=== PATIENT | female | born 1990 | race Caucasian/White ===

== ENCOUNTER 2022-06-09 22:53 | Emergency (ER) | payer MEDICAID, SELFPAY ==
[2022-06-09 22:54] VITALS: BP 140/71; PULSE 97; RESP 16; TEMP 36.2; O2SAT 97
[2022-06-09 23:16] VITALS: BMI 43.8
--- NOTE | 2022-06-09 23:29 | EDS_ITS ---
HPI History of Present Illness Chief Complaint: Fall Narrative Narrative: 31-year-old female here with mechanical fall from standing. She notes injury to the abdomen and right hand. Notes mechanical fall. Denies syncope. Denies any abdominal cramping, vaginal bleeding, passage of tissue or decreased movement. Denies any nausea or vomiting. Denies any recent fevers or trouble urinating. PFSH PFSH Home Medications prenat.vits,lenore,mks-bvue-dngva 1 tab PO DAILY 06/09/22 [History Last Taken Unknown] Allergy/AdvReac Type Severity Reaction Status Date / Time latex Allergy Rash Verified 06/09/22 22:53 Surgical History (Updated 06/09/22 @ 23:17 by Michelle Key) H/O section Social History Smoking Status: Former smoker ROS ROS ED ROS Narrative Constitutional: Denies fever HEENT: Denies sore throat Neck: Denies neck pain Cardiovascular: Denies chest pain, syncope Respiratory: Denies shortness of breath GI: Endorses abdominal pain : Denies changes in urinary habits Musculoskeletal: Right hand pain Neurologic: Denies numbness weakness or loss of sensation Skin denies rash EXAM Physical Exam Narrative Exam Narrative: Primary Survey Airway: Intact Breathing: Bilateral breath sounds Circulation: Palpable bilateral femorals, Palpable bilateral radial, Palpable bilateral DP and Palpable bilateral PT Disability / Spine precautions GCS Score: Eye Openin Verbal Response: 5 Motor Response: 6 Secondary Survey Constitutional: Please see MDM Head: Atraumatic, Midface stable, NO jaw malocclusion, No Cephalohematoma, and No Lacerations noted Eye: Pupils equal round and reactive to light, Extraocular muscles intact and No periorbital ecchymosis or stepoff, no evidence of entrapment ENT: Oropharynx clear, no lacerations, no hemotympanum, no raccoon eyes or lock sign Cervical spine / Neck: No cervical spine bony tenderness, crepitance, or stepoff deformity Trachea midline Lungs: Clear to auscultation, No asymmetric rise and No crepitus, no flail chest Cardiac: Regular rate and rhythm and No murmurs Abdomen: Gravid uterus, soft, mild diffuse tenderness No rebound, no obvious bruising, no Bruce sign Pelvis: Pelvis stable to compression : No evidence of genital injury Back: No midline bony tenderness to thoracic/lumbar/sacral spines Neuro: At baseline, intact strength and sensation in bilateral upper and lower extremities. 2+ patellar reflexes bilaterally. Extremities: NO gross Deformities Psych: Normal affect Nursing triage notes reviewed, Vital signs reviewed Const Vital Signs: 06/09/22 22:54 06/09/22 23:16 Temperature 97.1 F L Temperature Source Temporal Pulse Rate 97 Respiratory Rate 16 Respiratory Effort Normal Blood Pressure 140/71 H Blood Pressure Mean 94 Pulse Ox 97 Oxygen Delivery Method Room Air Room Air MDM MDM MDM Narrative Medical decision making narrative: Chief Complaint: Fall, abdominal pain, hand pain External records reviewed: No recent ER visits, no recent advanced imaging of the involved extremity or abdomen I considered the following differential diagnosis: Traumatic injury to the hand, abdominal contusion, abruption. I obtained x-rays of the involved extremities. heart tones are 140 for least one of the babies. This is reassuring. I performed a POCUS ultrasound which showed no obvious abnormalities, good movement, no obvious abruption. This was also reassuring. Consulted BUILDER BEAM. Spoke to soaking pits supervisor. Elizabeth Melton soaking pits supervisor stated the patient should be observed for 3 to 4 hours from time of fall and if there is no severe cramping abdominal pain, vaginal bleeding the patient is appropriate for discharge home. she further recommended close BUILDER BEAM follow-up. Patient was observed for approximately 3 to 4 hours. She remained asymptomatic. Factors affecting care: Patient is 18 weeks Social determinants of health: None History obtained from others: The patient's Shared decision making: I will have a discussion with the patient and or visitors regarding risk/benefits of further testing or admission. They will be made aware of of the risk/benefits inherent in this decision they will be given the opportunity to voice understanding. Consults: BUILDER BEAM Discharge Plan Triage Chief Complaint: Fall ED Provider: David Pereira Dx/Rx/DC Orders Clinical Impression: Fall, Abdominal contusion, Instructions: Placental Abruption Prescriptions: No Action #2 Tablet 1 tab PO DAILY Primary Care Provider: Care Physician,No Primary Referrals: Care Physician,No Primary [Primary Care Provider] - Activity Restrictions/Additional Instructions: Thank you for trusting us with your care today! Please take Tylenol (2 pills, 650 mg) every 6 hours as needed for pain control. Please return if you develop worsening crampy abdominal pain, vaginal bleeding, notice decrease movement, leakage of fluid. Please call OBGYN tomorrow to schedule an appointment for close follow-up. Please return to the emergency department if your symptoms change or worsen. Please follow with your primary care physician for further outpatient evaluation and management. Disposition Disposition: Home, Self Care Discharge Date/Time: 06/10/22 01:34
[2022-06-10] MEDS: Acetaminophen 500 MG Tablet PO (00:17)
== END 2022-06-10 01:34 | disposition home or self-care (01) ==
PROVIDERS: Emergency Provider Emergency Medicine; Visit Provider Emergency Medicine
DX: O9A.212 Injury, poisoning and certain other consequences of external causes complicating pregnancy, second trimester (principal); S30.1XXA Contusion of abdominal wall, initial encounter; S69.91XA Unspecified injury of right wrist, hand and finger(s), initial encounter; Z87.891 Personal history of nicotine dependence; Z3A.18 18 weeks gestation of pregnancy; W19.XXXA Unspecified fall, initial encounter
CPT/HCPCS: 99283

== ENCOUNTER 2022-10-01 21:37 | Outpatient (CLI) | payer MEDICAID, SELFPAY ==
[2022-10-01 22:13] VITALS: BMI 53.8
[2022-10-01 22:18] VITALS: PULSE 87; TEMP 36.4; O2SAT 96; O2SAT 97
[2022-10-01 22:19] VITALS: BP 111/54; PULSE 88
[2022-10-01 22:23] VITALS: PULSE 93; O2SAT 97
[2022-10-01 22:51] LABS: ROM Internal Control Test YES-OK TO RESULT pt. (Internal QC)
[2022-10-01 22:52] LABS: ROM Patient Test Negative (Negative); Record Kit Lot#, ROM+ K1374
--- NOTE | 2022-10-14 08:48 | OB.TRI.HP_ITS ---
HPI - General General Date of Admission: 10/01/22 Date of Service: 10/01/22 Chief Complaint: SROM HPI Narrative KINGSLEY COX, is a 32 F at 35w2d who presents with possible leaking fluid. [place] wet. No gush of fluid and no constant leak of fluid. PFSH PFSH Medical History (Updated 10/14/22 @ 08:[address] Lindsey Degroot, DO) Anxiety Depression Gestational diabetes Gestational HTN HPV (human papilloma virus) infection Home Medications prenat.vits,lenore,nhx-bqnj-okhdm 1 tab PO DAILY 06/09/22 [History Last Taken 10/06/22 08:00 1 TAB] hydroxyzine HCl 50 mg tablet 50 mg PO .COMPLEX anxiety 10/08/22 [History Last Taken 10/07/22 22:00 50 mg] acetaminophen 500 mg tablet 1,000 mg (2 x 500 mg) PO Q6H #0 tabs 10/12/22 [Rx Last Taken Unknown] ibuprofen 600 mg tablet 600 mg PO Q6H #0 tabs 10/12/22 [Rx Last Taken Unknown] nifedipine 30 mg tablet,extended release 24 hr 30 mg PO DAILY #30 tabs 10/12/22 [Rx Last Taken Unknown] Allergy/AdvReac Type Severity Reaction Status Date / Time latex Allergy Rash Verified 10/08/22 13:17 Surgical History (Updated 10/12/22 @ 08:[address] Bhaskar Harry MD) H/O section History of gynecologic surgery Previous section Social History Smoking Status: Former smoker History Elective abortions Hx Para 1 Spontaneous abortions Hx # Term Pregnancies Ectopic pregnancies Hx # Pregnancies Multiple births # of living children NST FHR Rate Baby A Baseline: 130 Variability:: Moderate Accelerations:: 15 x 15 Decelerations:: None NST Reactive:: Yes FHR Category:: Category I FHR Rate Baby B Baseline: 130 Variability:: Moderate Accelerations:: 15 x 15 Decelerations:: None NST Reactive:: Yes FHR Category:: Category I Assessment & Plan (1) 35 weeks gestation of : PLAN: - ROM plus negative - Not continuing to leak any fluid - NST reactive x 2 - Follow up in office (2) Twin : (3) Vaginal discharge:
== END 2022-10-01 23:20 | disposition home or self-care (01) ==
LOC: WPOUT 21:44 → WP 21:45
PROVIDERS: Visit Provider Obstetrics & Gynecology
DX: O99.891 Other specified diseases and conditions complicating pregnancy (principal); O24.419 Gestational diabetes mellitus in pregnancy, unspecified control; F41.9 Anxiety disorder, unspecified; F32.A Depression, unspecified; O13.3 Gestational [pregnancy-induced] hypertension without significant proteinuria, third trimester; Z79.899 Other long term (current) drug therapy; O30.003 Twin pregnancy, unspecified number of placenta and unspecified number of amniotic sacs, third trimester; N89.8 Other specified noninflammatory disorders of vagina; Z3A.35 35 weeks gestation of pregnancy
CPT/HCPCS: 59025; 59050; 84112; 99221; G0378

== ENCOUNTER 2022-10-08 12:35 | Inpatient (IN) | payer MEDICAID, SELFPAY ==
[2022-10-08] VITALS (14 sets, daily range): BP systolic 97–145; BP diastolic 41–92; PULSE 74–98; RESP 12–18; TEMP 36.1–36.6; O2SAT 95–98; BMI 53.8
--- NOTE | 2022-10-08 13:01 | PCM.HP.BLA ---
History and Physical Date of Admission: 10/08/22 Pre-Op History and Physical ? HPI: The patient is a 32 year old female presenting for pre-operative visit. She is scheduled for , with bilateral salpingectomy for di/di twins, gestational htn, GDMA2, Obesity in on 10/08/22. Procedure discussed along with risks, benefits and complications. Other alternatives discussed for management. Consent form signed? Yes. ? ? PAST MEDICAL HISTORY PAST MEDICAL HISTORY Diagnosis Date ? Abnormal Pap smear of cervix 2008 ? ASCUS +HPV ? Diet controlled gestational diabetes mellitus (GDM) in second trimester 08/25/2022 ? Encounter for IUD removal 08/03/2011 ? Endometriosis ? ? Insertion of IUD 01/23/2009 ? Mirena ? Mental disorder ? ? PMH - PAST MEDICAL HISTORY OF 09/06/2005 ? normal color vision ? ? PAST SURGICAL HISTORY PAST SURGICAL HISTORY Procedure Laterality Date ? DELIVERY ONLY ? ? ? , low transverse ? TISSUE LOCALIZATION-EXCISION ? 03/12/14 ? removal of endometriosis from RLQ abd. wall ? ? ? CURRENT MEDICATIONS Current Outpatient Medications Medication Sig Dispense Refill ? insulin NPH injection Inject 10 Units subcutaneously daily at bedtime. 3 mL 1 ? insulin needles, DISPOSABLE, (PEN NEEDLE) 31 gauge x 5/16 1 Each once daily as needed. 30 Each 1 ? insulin NPH injection Inject 10 Units subcutaneously daily with breakfast. 3 mL 1 ? blood sugar diagnostic test strip 1 Strip four times daily. Use as instructed 120 Strip 9 ? Lancets lancets 1 Each four times daily. Use as instructed 120 Each 9 ? hydrOXYzine HCl (ATARAX) 50 mg tablet Take 0.5-1 tablets by mouth three times daily as needed for anxiety. 30 tablet 1 ? vitamin B comp and vit C no.6 (VITAMIN B COMP WITH VIT C NO.6 ORAL) Take by mouth. ? ? ? prental multivitamin 27 mg iron- 800 mcg tablet Take 1 tablet by mouth once daily. ? ? ? No current facility-administered medications for this visit. ? ? ALLERGIES: Latex ? PERSONAL HISTORY: SOCIAL HISTORY Social History ? Tobacco Use ? Smoking status: Former ? ? Packs/day: 0.50 ? ? Years: 15.00 ? ? Additional pack years: 0.00 ? ? Total pack years: 7.50 ? ? Types: Cigarettes ? ? Quit date: 02/12/2022 ? ? Years since quittin.6 ? Smokeless tobacco: Never Vaping Use ? Vaping Use: current everyday user ? Substances: Nicotine Substance Use Topics ? Alcohol use: Not Currently ? ? Comment: wine 1-2 per week ? Drug use: Not Currently ? ? Types: Marijuana ? FAMILY HISTORY: FAMILY HISTORY FAMILY HISTORY Problem Relation Age of Onset ? other (cervial cancer [Other]) Mother 33 ? Radiation and chemo ? Diabetes Father ? ? Stroke Father ? ? Breast Cancer Maternal Grandmother ? ? No Known Problems Maternal Grandfather ? ? Diabetes Paternal Grandmother ? ? Thyroid Paternal Grandmother ? ? No Known Problems Paternal Grandfather ? ? Diabetes Paternal Uncle ? ? No Known Problems Son ? ? ? REVIEW OF SYMPTOMS: Increasing swelling of LE PHYSICAL EXAMINATION: ? VITALS: Blood pressure 142/84, weight (!) 306 lb (138.8 kg), last menstrual period 01/27/2022. ? GENERAL: The patient is well nourished, well hydrated in no acute distress. , The patient is oriented to time, place, and person. NECK: full range of motion ABD: gravid, non tender LE: Pitting edema to thighs. ? IMPRESSION: @ 36.2 weeks, Di/di twins, Obesity in , GEST HTN, GDMA2. ? PLAN: Repeat cs and bilateral salpingectomy ? Patient was originally scheduled for 37-week however after visit in the office today and new diagnosis of gestational hypertension discussion with the patient for early delivery. Delivery at 36.2 weeks gestation. we discussed risk benefits and alternatives of delivery. She understands that neonates born at 36 weeks gestation may have difficulty with prematurity as far as lung maturity. However we discussed this versus increasing risk for preeclampsia. Patient understands the risks and decision for repeat section with bilateral salpingectomy to be performed today. ? Pt has been counseled on risks/benefits and alternatives of surgery including but not limited to anesthesia, bleeding, infection, injury to pelvic structures including bowel, bladder, ureters and vessels. Pt wishes to proceed with surgery at this time. ? NPO since 8am. ? I have reviewed and updated past medical and surgical history, medications and allergies Willa Roberson MD
[2022-10-08 13:25] LABS: Bedside Glucose 62 mg/dL (74-106)
[2022-10-08] MEDS: Lactated Ringers 1,000 ML 999 ML IV (13:35)
[2022-10-08 14:02] LABS: Absolute Lymphocyte Count 1.69 X10^3/uL (0.83-4.51); Basophil# 0.02 X10^3/uL; Basophil% 0.2 % (0-1); Eosinophil# 0.08 X10^3/uL; Eosinophils% 0.8 % (0-5); Hemoglobin 9.2 g/dL (12.0-15.0); Lymphocyte # 1.69 X10^3/ul (0.83-4.51); Lymphocyte % 16.1 % (19-41); Mean Corp Hgb Conc 31.7 g/dL (32-36); Mean Corpuscular Hgb 27.2 pg (27.0-32.0); Mean Corpuscular Volume 85.8 fL (81-99); Mean Platelet Vol. 11.9 fl (6.2-12.0); Monocyte# 0.66 X10^3/uL; Monocyte% 6.3 % (0-10); NRBC Flagged by Analyzer 0 % (0-5); Neutrophil # 7.97 X10^3/uL (2.7-7.7); Neutrophil % 75.6 % (47-70); Platelet Count 218 K/mm3 (150-450); RBC Distribution Width CV 15.8 % (11.6-14.6); RBC Distribution Width SD 49.1 fl (35.1-43.9); Red Blood Count 3.38 M/mm3 (4.2-5.4); White Blood Count 10.5 K/mm3 (4.4-11.0)
[2022-10-08] MEDS: Acetaminophen 500 MG Tablet 1000 MG PO ×2 (14:08→20:19)
[2022-10-08] MEDS: Lactated Ringers 1,000 ML 150 ML IV (14:30)
[2022-10-08 14:37] LABS: Syphilis Antibodies Non-reactive
[2022-10-08] MEDS: Sodium Citrate/Citric Acid 30 ML UDC PO (15:37)
--- NOTE | 2022-10-08 16:30 | PLAC_PTH ---
PATIENT: KINGSLEY COX LOC: [facility] U#:[id number] AGE/SX: 32/F ROOM: [facility] RE10/08/[address]: Dr. Willa Toure, MDDOB: 1990 BED: 1 DIS: 10/12/2022 SPEC #: [id number] RECD: 10/08/22 18:56 STATUS: GARY ANNIE #: [id number] CYDNEY: 10/08/22 16:[address]: Willa Toure DEPT: SURGICAL PATHOLOGY RECD BY: Ann Marie Rai ENTERED: 10/11/22 07:21 SP TYPE: PLACENTA OTHR DR: No Primary Care Phys Tissues: A - Fallopian tube B - Fallopian tube C - Placenta, NOS Procedures: Surgery Specimen Level II Surgery Specimen Level V HEADER OPERATION: Tubal ligation, repeat section PRE-OP DIAGNOSIS: Twins TISSUE SUBMITTED: A - Right fallopian tube, B - Left fallopian tube, C - Placenta MICROSCOPIC DIAGNOSIS A. Right fallopian tube, salpingectomy: Complete cross-section with no pathologic change. B. Left fallopian tube, salpingectomy: Benign paratubal cyst. Complete cross-section of fallopian tube. C. Dichorionic diamniotic twin placenta (919 gm): Placenta A: Umbilical cord - trivascular with no inflammation. Placental membranes - No pathologic change. Placental disc - mild Cassandra-Cecil change and intravillous congestion. Placenta B: Umbilical cord - trivascular with no evidence of inflammation. Placental membranes - No pathologic change. Placental disc - Cassandra-Cecil change, intravillous congestion and increased intraparenchymal fibrin plaques. AM:haim 10/12/2022 MICROSCOPIC DESCRIPTION Slides are reviewed. GROSS DESCRIPTION A - Received in fixative is one container labeled with the patient's name and designated right fallopian tube. The specimen consists of a fallopian tube with an average length of 7.5 cm and has an average diameter of 0.7 cm. The fallopian tube has a normal fimbriated end. No mass lesions are identified. Rn Women Services sections are submitted one cassette. B - Received in fixative is one container labeled with the patient's name and designated left fallopian tube. The specimen consists of a fallopian tube with an average length of 7.0 cm and has an average diameter of 0.8 cm. The fallopian tube has a normal fimbriated end. A smooth, glistening cyst containing clear fluid is present adjacent to the fimbrial end. The cyst measures 1.0 cm in greatest dimension. Rn Women Services sections are submitted one cassette. C - SPECIMEN: TWIN PLACENTA / CLINICAL INFORMATION: A. Weight: A - 2.605 kg; B - 2.435 kg B. Gestational Age: 36.2 weeks C. Sex: A - Female, B - Female The specimen consists of a twin placenta containing two umbilical cords, dividing membrane, peripheral membranes and one placental disc. One umbilical cord contains a clip and is designated placenta A. PLACENTAL WEIGHT (POST FIXATION): 919 gm PLACENTAL DIMENSIONS: 21.0 x 1.9 x 4.0 cm PLACENTAL SHAPE: Usual ovoid PLACENTAL WEIGHT FOR GESTATIONAL AGE: Not applicable PLACENTA A: (with clip) MEMBRANES - Present A. Insertion: Marginal B. Site of rupture from edge: At edge of placental disc C. Color of membrane: Fallon-barrow D. Abnormalities: None UMBILICAL CORD - Present A. Color: Fallon-barrow B. Insertion: Near central insertion onto the placental disc C. Length: 26.0 cm D. Diameter: 1.2 cm E. Number of vessels: Three F. Abnormalities: None PLACENTA B: MEMBRANES - Present A. Insertion: Marginal B. Site of rupture from edge: At edge of placental disc C. Color of membrane: Fallon-barrow D. Abnormalities: None UMBILICAL CORD - Present A. Color: Fallon-barrow B. Insertion: Marginal C. Length: 32.0 cm D. Diameter: 1.5 cm E. Number of vessels: Three F. Abnormalities: None PLACENTAL DISC - Present A. Color of surface: Fallon-barrow B. surface abnormalities: None C. Maternal cotyledons: Intact with minimal tears D. Attached retro placental clot: No clot E. Cut surface: Dark red and spongy F. Lesions: None G. Separate clot: Absent SECTIONS SUBMITTED: 1. Dividing membrane 2. Umbilical cord A 3. Peripheral membranes A 4. Placenta disc A 5. Placental disc A 6. Placental disc A 7. Umbilical cord B 8. Peripheral membranes B 9. Placental disc B 10. Placental disc B 11. Placental disc B AM:haim 10/11/2022 TC:5 CPT: 38015 x2, 50103 x2
--- NOTE | 2022-10-08 16:51 | EX.PCM.OBRPT ---
Details Operative Information Date of Procedure: 10/08/22 Pre-Operative Diagnosis: Gestational hypertension, 36.2 weeks gestation, dichorionic diamniotic twin gestation, gestational diabetes insulin dependent, Obesity in , Previous CS, breech, desires sterilization Post-Operative Diagnosis: Same, Live female infants Indications for : Repeat Elective , Desires elective sterilization and Breech Classification: Scheduled Procedure Type: low transverse (and bilateral salpingectomy ) stock handler floorperson #1: Lindsey Degroot Type of Anesthesia: Spinal Antibiotic Given: Ancef 3 grams IV x1 Drain: [place]velace to straight drain Estimated Blood Loss: 600 Fluids Replaced: 1000 Procedure Start Time: 16:06 Procedure Stop Time: 16:40 Time of Delivery: 16:11 (161) Findings Description of Procedure: After informed consent was obtained the patient was taken to the operating room she was given spinal anesthesia. He was placed in the supine position. She was then prepped and draped in normal sterile fashion. Once spinal anesthesia was found to be adequate skin incision was made with a scalpel in a Pfannenstiel fashion. It was carried down to the underlying layer of the fascia. Fascia was then incised midline with scapel and extended laterally using curved mian. 2 straight [place]'s were placed in the superior aspect of the fascial edge and the rectus muscles were dissected off sharply. At this time the rectus muscles were bluntly. Using blunt force the peritoneum was then entered. adhesions to anterior uterus noted- At this time the vesicouterine peritoneum was identified. Metzenbaum scissors were used to create a bladder flap and then taken down digitally. Uterine incision was made in a low transverse fashion with the scalpel and then entered bluntly. Gentle opposing traction was placed to extend the uterine incision. The membranes were ruptured amniotic fluid clear. Twin A buttocks was brought to the uterine incision was delivered atraumatically followed by the rest the 's body and head without complication. Cord was clamped and cut. The infant was handed to the waiting nursery team. Twin B the buttocks was stabilized and membranes were ruptured clear. Again the buttocks was brought to the uterine incision delivered atraumatically followed by the rest the infant's body and head. Mouth and nose were suctioned cord was clamped and cut. Infant was then handed to the waiting nursery team. The placentas were then removed with gentle traction. The uterus was removed from the intra-abdominal cavity- adhesions noted around both lateral aspects of uterus. uterus was cleared of all clots and debris using a moist lap. Ring clamps were placed on the uterine angles. #1 Vicryl suture was used in a running locked fashion- excellent hemostatis appreciated. At this time then the uterus was placed back into abdominal cavity uterine incision was evaluated and noted to be of good hemostasis. Tubes and ovaries were evaluated they were normal. The tubes were grasped in an avascular area with the [place] LigaSure was used to coagulate and ligate along the mesosalpinx. The tube on right was removed in entirety. This was then repeated on the left. Great hemostasis was appreciated at this time the uterine incision was again evaluated good hemostasis was appreciated. Nurses then placed back in the intra-abdominal cavity. Leeann placed over the uterine incision. The peritoneum was grasped with Kellys. Peritoneum was reapproximated using #2 Vicryl suture in a running fashion. Leeann placed over the rectus muscle. The fascia was then reapproximated using #1 PDS in a running fashion. Subcutaneous layer was evaluated and Bovie was used for any small oozing that was noted, irrigation using normal saline was performed. Leeann was placed. Per #2-0 plain gut suture was then used to reapproximate the subcutaneous layer 4-0 Vicryl on a [place] needle was used to reapproximate the skin in a subcutaneous fashion. Dry sterile dressing was applied. Instrument lap needle count were correct ?2. Anticipated normal postoperative course for this patient. Dr. Degroot assisted with retraction and delivery of twins. no qualified residents available. Presentation: Positive for Complete Breech Amniotic Membrane Rupture Type: Artificial Amniotic Fluid Description: Clear Placental Delivery Description: Expressed Placenta Disposition: [facility] Cord Vessel Description: 3 Vessels Cord Entanglement: None Infant A Gender: Female (1 minute): 9 (5 minute): 9 Delayed Cord Clamping: No Complications Risks of Surgery Discussed w/Patient: Bleeding, Anesthesia Risks, Infection, Permanency, Injury to surrounding structure(s) including bowel and bladder and Availability of other non-permanent control options Complications: none Baby B Information Amniotic Membrane Rupture Type: Artificial Presentation: Complete Breech Operative Information Mode of Delivery: Cord Vessel Description: 3 Vessels Cord Entanglement: None Infant B gender: Female (1 minute): 8 (5 minute): 9 Delayed Cord Clamping: No
[2022-10-08] MEDS: Oxytocin 15 Units/NS 250ml 15 UNITS/250 ML IV.SOLN 83 UNITS IV (17:07)
[2022-10-08] MEDS: Ketorolac 30 MG/ML Syringe IV ×2 (17:22→23:18)
--- NOTE | 2022-10-08 18:03 | NURSING ---
Received report from Cynthia Nguyen RN at this time. I will assume care of patient at this time.
[2022-10-08 18:15] LABS: Bedside Glucose 70 mg/dL (74-106)
[2022-10-08 18:57] LABS: Pathology Specimen OB SEE PATHOLOGY REPORT
[2022-10-08] MEDS: Lactated Ringers 1,000 ML 100 ML IV (20:20)
[2022-10-08] MEDS: 0.9% Saline Lock 10 ML Syringe IV (23:21)
[2022-10-08] MEDS: oxyCODONE 5 MG Tablet PO (23:50)
[2022-10-09 01:00] VITALS: BP 149/75; PULSE 83; RESP 15; TEMP 36.4; O2SAT 97
[2022-10-09 04:00] VITALS: BP 149/90; PULSE 88; RESP 15; TEMP 36.7; O2SAT 96
[2022-10-09] MEDS: Acetaminophen 500 MG Tablet 1000 MG PO ×4 (04:25→21:48)
[2022-10-09] MEDS: SimETHICONE 80 MG Chewable Tablet PO (04:25)
[2022-10-09] MEDS: Enoxaparin 40 MG/0.4 ML Syringe SC ×2 (04:26→17:11)
[2022-10-09 05:06] LABS: Bedside Glucose 97 mg/dL (74-106)
[2022-10-09] MEDS: Ketorolac 30 MG/ML Syringe IV ×2 (05:32→11:30)
[2022-10-09] MEDS: 0.9% Saline Lock 10 ML Syringe IV ×2 (05:32→11:30)
[2022-10-09 07:31] LABS: Hematocrit 29.4 % (37-47); Hemoglobin 9.1 g/dL (12.0-15.0); Mean Corpuscular Hgb 26.5 pg (27.0-32.0); Mean Corpuscular Volume 85.7 fL (81-99); Platelet Count 179 K/mm3 (150-450); RBC Distribution Width CV 15.8 % (11.6-14.6); RBC Distribution Width SD 49.3 fl (35.1-43.9); Red Blood Count 3.43 M/mm3 (4.2-5.4); White Blood Count 10.8 K/mm3 (4.4-11.0)
[2022-10-09 07:39] VITALS: BP 144/90; PULSE 92; RESP 16; TEMP 36.4; O2SAT 96
--- NOTE | 2022-10-09 08:26 | PN_ITS ---
Subjective Subjective patient seen at bedside, doing well. Patient reports good pain control. lochia mild. passing flatus. Urinating w/o difficulty. Objective Data Objective Data Vital Signs: Vital Signs Temp Pulse Resp BP Pulse Ox O2 Del Method 98.1 F 88 15 149/90 H 96 Room Air 10/09/22 04:00 10/09/22 04:00 10/09/22 04:00 10/09/22 04:00 10/09/22 04:00 10/09/22 04:00 Oxygen Delivery Method Room Air Weight: 138 kg Body Mass Index (BMI) 53.8 Intake & Output: Intake and Output for Last 24 Hours 10/07/22 10/08/22 10/09/22 23:59 23:59 23:59 Intake Total 1505.75 / 1505.75 1000 / 1000 Output Total 850 / 850 900 / 900 Balance 655.75 / 655.75 100 / 100 Lab / Micro Data 10/09/22 07:21 Labs: Laboratory Results - last 24 hr 10/08/22 13:07: POC Glucose 62 L 10/08/22 13:35: WBC 10.5, RBC 3.38 L, Hgb 9.2 L, Hct 29.0 L, MCV 85.8, MCH 27.2, MCHC 31.7 L, RDW Std Deviation 49.1 H, RDW Coeff of Nick 15.8 H, Plt Count 218, MPV 11.9, Immature Gran % (Auto) 1.000 H, Neut % (Auto) 75.6 H, Lymph % (Auto) 16.1 L, [place] % (Auto) 6.3, Eos % (Auto) 0.8, Baso % (Auto) 0.2, Absolute Neuts (auto) 8.0 H, Absolute Lymphs (auto) 1.69, Nucleated RBC % 0, Syphilis Total Ab Non-reactive, Blood Type O POSITIVE, Antibody Screen NEGATIVE 10/08/22 17:57: POC Glucose 70 L 10/09/22 04:46: POC Glucose 97 10/09/22 07:21: WBC 10.8, RBC 3.43 L, Hgb 9.1 L, Hct 29.4 L, MCV 85.7, MCH 26.5 L, MCHC 31.0 L, RDW Std Deviation 49.3 H, RDW Coeff of Nick 15.8 H, Plt Count 179, MPV 12.0 Physical Exam Narrative abd: dressing dry and intact. Const alert and oriented x3 General Appearance: cooperative HEENT normocephalic Neck General: normal visual inspection GI soft to palpation and non-distended GI Narrative: Fundus firm Extremity normal to inspection and no calf tenderness Skin no rashes or lesions noted Neuro oriented x3 and CN's II-XII intact bilaterally Psych mental status grossly normal Assessment & Plan Assessment/Plan (1) Delivery by section: (2) Gestational HTN: (3) Obesity affecting : PLAN: Plan POD#1 , Doing well Routine care pain mgmt monitor VS ambulation
[2022-10-09] MEDS: Senna/Docusate Sodium 1 Tablet PO (10:37)
--- NOTE | 2022-10-09 11:28 | CASEMGMT ---
Social Work Assessment Labor and Delivery Unit Date/Time of Referral: 10/08/22, 16:35 Referred by: Dr. Toure Date/Time of intervention: 10/09/22, 11:00am Reason for referral: Mental Health History obtained from: MOB and FOB Household composition: MOB, LETICIA Lott Humrichouser 14 yr old Jazzmine and now twins Cooper and Wilver. LETICIA is not the father of the 14 year old. FOB of 14year old is not involved, Oren is like a father to Jazzmien. MOB and FOInder have been together 10 years. Parent/Guardian status: Parents are guardian of children, MOB is guardian of 14 year old Medical History: MOB--history of anxiety, gestational diabetes. Baby Girl A: 2.605 Kg at , born 10/08/22, at 36 weeks, breech, . Apgars 9 and 9. Baby Girl B: 2.635 kg, born 10/08/22, at 26 weeks, breech, , hypoglycemic, Apgars 8 and 9. Educational status: MOB graduated from high school, LETICIA got his GED Financial Concerns: None. 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 Both plan to continue working. They work opposite schedules so share childcare responsibilities. supplies: They have all needed supplies including car seat, bassinet, crib, clothing, diapers, wipes, access to bottles and formula if needed. GINNY plans to breast feed. Childcare/Caregivers: MOB and FOB, MOB's aunt helps to watch the children Transportation: They have two vehicles. Programs/Agencies involved: They have WIC. Children's Services/Legal issues: None. Behavioral Health issues: FOInder--history of anxiety, depression, PTSD from being in the service. He follows up at the NH, sees a counselor once per month. MOB--anxiety, she is on medication and states it helps. She is not in counseling and does not think she needs counseling at this time. Substance abuse--none for FOB or MOB No tox screens completed. Safety: No safety concerns. Family/Social Stressors: None Support systems: MOB's aunt, FOB's sister, MOB's friends. Depression/Anxiety/Shaken Baby/Safe Sleeping/Help Me Grow/[facility] Resources: SW gave information and reviewed the information on all of these topics, and in particular information on PPD. SW also provided a list of counseling agencies, advised MOB also she can call or go on line for her insurance company, should she want counseling, to see what local agencies are in network. MOB states understanding. We discussed also if having symptoms of PPD to speak w/her GEOSPATIAL IMAGE ANALYST, as sometimes medication can be adjusted. Assessment: SW spoke w/MOB and FOB, both answered all questions appropriately. Babies in the bassinet at this time, SW did not observe MOB interact w/babies. SW did observe FOB interact with the babies and was appropriate. Plan: Babies to go home w/family at time of discharge. No further social service needs anticipated at this time. BALBINA Prescott
[2022-10-09 12:30] VITALS: BP 144/95; PULSE 82; RESP 14; TEMP 36.4; O2SAT 97
[2022-10-09 15:44] VITALS: BP 150/91; PULSE 100; RESP 16; TEMP 36.5; O2SAT 97
[2022-10-09] MEDS: Ibuprofen 600 MG Tablet PO ×2 (17:11→23:04)
[2022-10-09] MEDS: NIFEdipine 30 MG Tablet PO (17:42)
[2022-10-09 19:58] VITALS: BP 152/81; PULSE 86; RESP 16; TEMP 36.4; O2SAT 97
[2022-10-09] MEDS: oxyCODONE 5 MG Tablet PO (22:12)
[2022-10-10 02:18] VITALS: BP 140/72; PULSE 92; RESP 16; TEMP 36.3; O2SAT 97
[2022-10-10] MEDS: Acetaminophen 500 MG Tablet 1000 MG PO ×4 (03:52→23:06)
[2022-10-10] MEDS: Ibuprofen 600 MG Tablet PO ×4 (05:40→23:06)
[2022-10-10] MEDS: Enoxaparin 40 MG/0.4 ML Syringe SC ×2 (05:40→17:19)
[2022-10-10 08:02] VITALS: BP 149/88; PULSE 96; RESP 16; TEMP 36.3; O2SAT 98
--- NOTE | 2022-10-10 08:05 | PCM.PROGNOTE ---
Subjective Subjective patient seen at bedside, doing well. Patient reports good pain control. lochia mild. breast feeding going well. passing flatus, tolerating regular diet. Objective Data Objective Data Vital Signs: Vital Signs Temp Pulse Resp BP Pulse Ox O2 Del Method 97.3 F L 92 16 140/72 H 97 Room Air 10/10/22 02:18 10/10/22 02:18 10/10/22 02:18 10/10/22 02:18 10/10/22 02:18 10/10/22 02:18 Oxygen Delivery Method Room Air Weight: 138 kg Body Mass Index (BMI) 53.8 Intake & Output: Intake and Output for Last 24 Hours 10/08/22 10/09/22 10/10/22 23:59 23:59 23:59 Intake Total 1505.75 / 1505.75 1000 / 1000 Output Total 850 / 850 900 / 900 Balance 655.75 / 655.75 100 / 100 Lab / Micro Data 10/09/22 07:21 Physical Exam Narrative abd: soft, fundus firm. Dressing dry and intact. Const alert and oriented x3 General Appearance: cooperative HEENT normocephalic Neck General: normal visual inspection GI soft to palpation and non-distended GI Narrative: Fundus firm Extremity normal to inspection and no calf tenderness Skin no rashes or lesions noted Neuro oriented x3 and CN's II-XII intact bilaterally Psych mental status grossly normal Assessment & Plan Assessment/Plan (1) Obesity affecting : (2) Gestational HTN: (3) Delivery by section: PLAN: Plan POD# 2 , Doing well Routine care pain mgmt monitor VS ambulation started procardia 30xl yesterday- continue at this time- monitor BPs adjust if indicated. Consider DC home tomorrow
[2022-10-10] MEDS: NIFEdipine 30 MG Tablet PO (09:40)
[2022-10-10] MEDS: Senna/Docusate Sodium 1 Tablet PO (09:40)
[2022-10-10 15:29] VITALS: BP 138/82; PULSE 95; RESP 16; TEMP 36.2; O2SAT 99
[2022-10-10 20:38] VITALS: BP 133/81; PULSE 106; RESP 15; TEMP 36.9; O2SAT 97
[2022-10-11 01:49] VITALS: BP 155/80; PULSE 81; RESP 15; TEMP 36.6; O2SAT 100
[2022-10-11] MEDS: Enoxaparin 40 MG/0.4 ML Syringe SC ×2 (05:03→17:22)
[2022-10-11] MEDS: Ibuprofen 600 MG Tablet PO ×4 (05:04→23:25)
[2022-10-11] MEDS: Acetaminophen 500 MG Tablet 1000 MG PO ×4 (05:04→23:25)
[2022-10-11 08:20] VITALS: BP 134/85; PULSE 87; RESP 18; TEMP 36.3; O2SAT 98
--- NOTE | 2022-10-11 08:23 | PCM.PN.OB ---
Subjective Subjective Patient seen at bedside. Denies any dizziness, headache, SOB, or CP. Reports having a headache last night in the back of head area. Denies any vision changes. and pumping for other in SCN. Objective Data Objective Data Vital Signs: Vital Signs Temp Pulse Resp BP Pulse Ox O2 Del Method 97.8 F 81 15 155/80 H 100 Room Air 10/11/22 01:49 10/11/22 01:49 10/11/22 01:49 10/11/22 01:49 10/11/22 01:49 10/11/22 01:49 Oxygen Delivery Method Room Air Weight: 304 lb 3.806 oz Body Mass Index (BMI) 53.8 Intake & Output: Intake and Output for Last 24 Hours 10/09/22 10/10/22 10/11/22 23:59 23:59 23:59 Intake Total 1000 / 1000 Output Total 900 / 900 Balance 100 / 100 Lab / Micro Data Attestation: I reviewed the patient's lab results. 10/09/22 07:21 Physical Exam Narrative Dressing is dry and intact Const alert and no apparent distress General Appearance: cooperative and comfortable Exam Limitations: no limitations HEENT normocephalic Eyes General Eye: normal appearance of both eyes Neck full ROM General: normal visual inspection Chest Chest: symmetrical chest wall rise Resp normal respiratory effort and normal air movement Effort and Inspection: symmetric chest movement Auscultation: clear to auscultation bilaterally Cardio regular rate and regular rhythm GI normal to inspection, nondistended, normoactive bowel sounds Back/Spine normal ROM Extremity full ROM and no calf tenderness General Extremity: normal exam except as noted Skin no rashes or lesions noted Neuro CN's II-XII intact bilaterally Psych mental status grossly normal Assessment & Plan (1) Gestational HTN: (2) Delivery by section: PLAN: Plan POD 3 Repeat C/S Twins Blood pressures- 130-150's/ 80's- Continue Procardia 30 mg XL PO daily Ambulate Pain control Anticipate discharge/hotel status tomorrow Dr. Degroot involved with plan of care
[2022-10-11] MEDS: NIFEdipine 30 MG Tablet PO (10:08)
[2022-10-11] MEDS: Senna/Docusate Sodium 1 Tablet PO (10:08)
[2022-10-11 14:30] VITALS: BP 139/86; PULSE 84; RESP 19; TEMP 36.6; O2SAT 97
[2022-10-11] MEDS: oxyCODONE 5 MG Tablet PO (20:22)
[2022-10-11 20:33] VITALS: BP 139/79; PULSE 82; RESP 18; TEMP 36.6
[2022-10-12 02:40] VITALS: BP 146/95; PULSE 89; RESP 18; TEMP 36.5; O2SAT 96
--- NOTE | 2022-10-12 03:13 | NURSING ---
RN notes BP 146/95. Pt denies Headache, upper epigastric pain, and blurry vision. +2 nonpitting edema noted.
[2022-10-12] MEDS: Acetaminophen 500 MG Tablet 1000 MG PO (05:24)
[2022-10-12] MEDS: Enoxaparin 40 MG/0.4 ML Syringe SC (05:24)
[2022-10-12] MEDS: Ibuprofen 600 MG Tablet PO (05:24)
[2022-10-12 06:10] VITALS: BP 137/84
[2022-10-12 08:27] VITALS: BP 134/91; PULSE 103; RESP 16; TEMP 36.9; O2SAT 99
--- NOTE | 2022-10-12 08:42 | PCM.PN.OB ---
Subjective Subjective Denies complaints Objective Data Objective Data Vital Signs: Vital Signs Temp Pulse Resp BP Pulse Ox O2 Del Method 98.4 F 103 H 16 134/91 H 99 Room Air 10/12/22 08:27 10/12/22 08:27 10/12/22 08:27 10/12/22 08:27 10/12/22 08:27 10/12/22 08:27 Oxygen Delivery Method Room Air Weight: 304 lb 3.806 oz Body Mass Index (BMI) 53.8 Lab / Micro Data 10/09/22 07:21 Physical Exam Const alert, oriented x3 and no apparent distress HEENT normocephalic GI soft to palpation, non-tender and non-distended GI Narrative: fundus firm, mid & below umbilicus Incision - bandage c/d/i Extremity normal to inspection and no calf tenderness Assessment & Plan (1) Delivery by section: COMMENT: POD#4 (2) Gestational HTN: QUALIFIERS: Trimester: third trimester Qualified Code(s): O13.3 - Gestational [-induced] hypertension without significant proteinuria, third trimester PLAN: Plan D/c home BP's normal to mildly elevated. continue procardia. f/u Tuesday for BP check. reviewed BP & preE precautions.
--- NOTE | 2022-10-12 08:44 | PCM.DC.SUM ---
Providers Date of Admission: 10/08/22 Primary Care Physician: Lyly Primary Care Phys Reason For Visit: PRIMARY FOR TWINS Diagnosis Discharge Diagnosis (1) Delivery by section: Status: Acute (2) Gestational HTN: Status: Acute Code(s): O13.9 - Gestational [-induced] hypertension without significant proteinuria, unspecified trimester Qualifiers: Trimester: third trimester Qualified Code(s): O13.3 - Gestational [-induced] hypertension without significant proteinuria, third trimester Plan D/c home BP's normal to mildly elevated. continue procardia. f/u Tuesday for BP check. reviewed BP & preE precautions. Medications at Discharge Home Medications prenat.vits,lenore,[id number] 1 tab PO DAILY 06/09/22 hydroxyzine HCl 50 mg tablet 50 mg PO .COMPLEX anxiety 10/08/22 acetaminophen 500 mg tablet 1,000 mg (2 x 500 mg) PO Q6H #0 tabs 10/12/22 ibuprofen 600 mg tablet 600 mg PO Q6H #0 tabs 10/12/22 nifedipine 30 mg tablet,extended release 24 hr 30 mg PO DAILY #30 tabs 10/12/22 Hospital Course Summary of Care Provided Minutes Spent on Discharge: 15 Hospital Course: Patient had for twins & gestational hypertension. In PP period her BP was monitored & controlled with procardia. Weight / BMI Weight Weight: 304 lb 3.806 oz Body Mass Index (BMI) 53.8 ABG / Lab / Microbiology Data 10/09/22 07:21 D/C Instructions Discharge Diet: No restrictions Discharge Activity: May Shower May resume sexual activity in: 6 weeks Weight Bearing Status: Weight bearing as tolerated Call your doctor if your incision/area has: Continuous Slow Oozing, Sudden Increased Bleeding, Increased Pain/ Swelling, Increased Redness, Foul Smelling Discharge and Swelling at the incision site Call your doctor if you observe: Fever of 101 or Higher, Coldness, Increased Pain, Change in Color, Inability to urinate, Inability to have a bowel movement, Using more than 1 pad per hour, Shortness of breath, Dizziness, Fainting spells, Chest pain, Increased palpitations (irregular heartbeat), Calf discomfort and Uncontrolled pain Suture Line Care: Avoid Pulling/Pushing and Avoid Pinching/Bending Remove Dressing in: 1 week Cleanse incision/area with: Soap & Water Please Follow Up With: Wlila Toure MD When: Follow up in 2 and 6 weeks for visits. Meaningful Use Info Meaningful Use Diagnoses (Choose all that apply): None applicable Discharge Plan Admission Admit Date/Time: 10/08/22 12:35 Primary Reason for Your Visit: section Attending Provider: Willa Toure Primary Care Provider: Care Physician,No Primary Discharge Orders/Prescriptions Prescriptions: New nifedipine 30 mg Tablet Extended Release 24hr 30 mg PO DAILY Qty: 30 0RF acetaminophen 500 mg Tablet 1,000 mg PO Q6H Qty: 0 0RF ibuprofen 600 mg Tablet 600 mg PO Q6H Qty: 0 0RF Continued prenat.vits,lenore,[id number] Tablet 1 tab PO DAILY hydroxyzine HCl 50 mg tablet 50 mg PO .COMPLEX Patient Comments: take 1/2 to 1 tablet by mouth three times a day if needed for anxiety Rx Instructions: 50 mg orally prn; Discontinued insulin NPH-regular hum s-syn 100 unit/mL (70-30) solution 10 ml subcut BIDAC Patient Comments: took 10 units this am Rx Instructions: 10 units in AM and 10 units at bedtime Referrals / Follow Up: Care Physician,No Primary [Primary Care Provider] - Disposition Disposition (needs filled in before D/C Order can be placed): Home, Self Care
[2022-10-12] MEDS: Senna/Docusate Sodium 1 Tablet PO (08:48)
[2022-10-12] MEDS: NIFEdipine 30 MG Tablet PO (09:08)
== END 2022-10-12 09:21 | disposition home or self-care (01) | DRG 539 ==
PROVIDERS: Admitting Provider Obstetrics & Gynecology; Visit Provider Obstetrics & Gynecology
DX: O30.043 Twin pregnancy, dichorionic/diamniotic, third trimester (principal); Z37.2 Twins, both liveborn; E66.9 Obesity, unspecified; O24.424 Gestational diabetes mellitus in childbirth, insulin controlled; Z30.2 Encounter for sterilization; Z3A.36 36 weeks gestation of pregnancy; O13.4 Gestational [pregnancy-induced] hypertension without significant proteinuria, complicating childbirth; O34.211 Maternal care for low transverse scar from previous cesarean delivery; O99.214 Obesity complicating childbirth; O32.1XX1 Maternal care for breech presentation, fetus 1; O32.1XX2 Maternal care for breech presentation, fetus 2; Z87.891 Personal history of nicotine dependence
CPT/HCPCS: 59025; 59050; 82962; 85025; 85027; 86780; 86850; 86900; 86901; 88302; 88307; 99221; J7120; A4216; G0378; J2405